=== PATIENT | male | born 1980 | race Caucasian/White ===

== ENCOUNTER → 2020-10-10 10:30 | Outpatient (CLI) | payer BC, SELFPAY ==
--- NOTE | ~2020-10-10 | MR_ITS ---
EXAMINATION: MR brain/brain stem wo/w con DATE: 10/10/2020 11:23 INDICATION: Headache. Vision change. Demyelinating disease. TECHNIQUE: Magnetic resonance imaging (MRI) of the brain and brainstem was performed without and with 20 mL MultiHance intravenous contrast. Sequences included sagittal and axial T1-weighted FLAIR, axia l T1-weighted FSE, axial diffusion-weighted FS EPI, sagittal T2-weighted FLAIR, axial T2*-weighted GR E, axial T2-weighted FLAIR Propeller, and axial T2-weighted Propeller. Postcontrast sequences include d axial, coronal, and sagittal T1-weighted FSE. Apparent diffusion coefficient (ADC) maps were create d. COMPARISON: Brain MRI 09/17/2007 FINDINGS: There is no intracranial hemorrhage, acute infarction, or abnormal intracranial mass lesion . The ventricles are normal in size. The orbits are normal. There is mild mucosal thickening in the p aranasal sinuses. The mastoid air cells are normal. IMPRESSION: 1. Normal brain. Reviewed, dictated and finalized at location A. IMPRESSION: 1. Normal brain.
[2020-10-10 10:55] LABS: Estimated Glomerular Filt Rate > 60
== END ==
PROVIDERS: PCP Emergency Medicine; Visit Provider Emergency Medicine
DX: R51.9 Headache, unspecified (principal)
CPT/HCPCS: 70553; A9577

== ENCOUNTER → 2020-11-21 11:08 | Outpatient (CLI) | payer BC, SELFPAY ==
--- NOTE | ~2020-11-21 | US_ITS ---
US abdomen complete EXAMINATION: US Abdomen Complete INDICATION: Elevated liver enzymes PROCEDURE: Realtime High Resolution abdomen ultrasound. COMPARISON: No prior studies for comparison FINDINGS: There are multiple gallbladder polyps measuring 5 mm or less. No gallstones, gallbladder wa ll thickening or pericholecystic fluid. Common bile duct measures 4 mm. Liver echotexture is increased, consistent with fatty infiltration.. Pancreas within normal limits. Pancreatic tail is obscured by bowel gas. Spleen is unremarkeable. Renal echotexture is within norm al limits bilaterally without hydronephrosis, contour deforming mass or renal stone. Right kidney angie sures 9.7 cm. Left kidney measures 10.6 cm. Visualized aspects of the aorta and IVC are within normal limits. Portal vein is patent. No sonograph ic Grajeda's sign indicated by the technologist. IMPRESSION: 1: Gallbladder polyps. 2: Hepatic steatosis. Reviewed, dictated and finalized at location A.
== END ==
PROVIDERS: PCP Emergency Medicine; Visit Provider Emergency Medicine
DX: K82.4 Cholesterolosis of gallbladder (principal); K76.0 Fatty (change of) liver, not elsewhere classified
CPT/HCPCS: 76700

== ENCOUNTER → 2022-01-28 07:44 | Outpatient (CLI) | payer BC, SELFPAY ==
--- NOTE | ~2022-01-28 | US_ITS ---
US right upper quadrant INDICATION: Follow-up gallbladder polyps PROCEDURE: Realtime right upper abdominal ultrasound. COMPARISON: No prior studies for comparison. FINDINGS: The pancreas is normal without focal mass or pancreatic ductal dilation. Liver echotexture is increased, consistent with fatty infiltration. No focal hepatic masses. There is normal directio nal flow in the portal vein. There are multiple echogenic foci in the gallbladder lumen which are nonmobile and nonshadowing measu ring up to 9 mm. There has been enlargement of gallbladder polyps. Follow-up ultrasound in 6 months r ecommended. No gallstones are identified. No gallbladder wall thickening or pericholecystic fluid. Co mmon bile duct measures 4 mm. No sonographic Grajeda's sign. IMPRESSION: 1: Multiple gallbladder polyps which have enlarged, largest measuring 9 mm. Follow-up ultrasound in 6 months recommended. 2: Hepatic steatosis. Reviewed, dictated and finalized at location A. STIC ASSOCIATE IMPRESSION: 1: Multiple gallbladder polyps which have enlarged, largest measuring 9 mm. Fol low-up ultrasound in 6 months recommended. 2: Hepatic steatosis.
== END ==
PROVIDERS: PCP Emergency Medicine; Visit Provider Emergency Medicine
DX: K82.4 Cholesterolosis of gallbladder (principal); K76.0 Fatty (change of) liver, not elsewhere classified
CPT/HCPCS: 76705

== ENCOUNTER 2022-03-10 14:53 | Outpatient (CLI) | payer BC, SELFPAY ==
[2022-03-10 16:09] LABS: Alanine Aminotransferase 32 U/L (6-50); Albumin Level 4.6 g/dL (3.5-5.1); Alkaline Phosphatase 78 U/L (38-126); Amylase 51 U/L (30-110); Aspartate Amino Transferase 27 U/L (17-59); Bilirubin,Total 0.8 mg/dL (0.2-1.3); Lipase 100 U/L (23-300)
== END 2022-03-10 14:54 | disposition home or self-care (01) ==
LOC: ANHSURGERY 15:23
PROVIDERS: PCP Emergency Medicine; Visit Provider Surgery
DX: K82.4 Cholesterolosis of gallbladder (principal); Z01.818 Encounter for other preprocedural examination
CPT/HCPCS: 36415; 80076; 82150; 83690; 86850; 86900; 86901

== ENCOUNTER 2022-03-19 10:21 | Observation (INO) | payer BC, SELFPAY ==
[2022-03-06 12:32] VITALS: BMI 25.0
--- NOTE | 2022-03-06 13:01 | SUR.PREOP ---
Report to the Outpatient Waiting Room, entrance under the green pavilion located off [facility], at time 0700 on date 03/19/22. Planned Procedure Time: 0900. Time changes happen often and if your time is changed the preop area will call you the afternoon before. - You and your visitor will be asked to self-screen and do not enter if you have any COVID symptoms. - Only one visitor is requested with a max of two and NO children visitors are allowed at this time. - The patient visitor may be requested to leave or wait in car when not with patient due to distancing restrictions. - A mask is optional within the hospital. Patients may have clear liquids (water, carbonated beverages, clear teas, apple juice) until 3 hours prior to surgery with a maximum of 20 ounces. - No food from midnight until time of surgery - Infants may have breast milk until 4 hours before surgery, infant formula 6 hours prior to surgery. - Children will be allowed to drink immediately following surgery. If applicable, please bring a bottle or sippy cup to assist with drinking. Juice, water, soda, and popsicles are readily available. For infants on formula, please bring formula the day of surgery. Pacifiers are allowed. Take the following medications with a SIP of water the morning of surgery: n/a Medications to discontinue per physician n/a Date to take last dose n/a Please no make-up, nail slovak, hairspray, perfume, deodorant, or body powder the day of surgery. No jewelry (including any body piercings) or valuables the day of surgery, leave them at home. Please take a shower or bath the night before, or the morning of, surgery with an antibacterial soap. Wear comfortable, loose fitting clothing. Children are encouraged to wear pajamas. - Jewelry must be removed prior to entering the operating room. Rings and piercings that are not removed may be cut off. - The hospital will not accept responsibility for valuables. - Please leave all valuables, including medications, at home the day of surgery. If you are going home after surgery, a licensed school bus driver/mechanic must drive you home. - NO public transportation without another adult if you receive anesthesia. - We recommend that an adult stay with you for 24 hours following discharge. - We also recommend that you do not drive, make important decision, drink alcoholic beverages, or take any drugs that were not prescribed by your health care provider for at least 24 hours after your discharge time. For Pediatric surgeries, we recommend two adults accompany the child home. Follow any additional instructions given to you from your surgeon. If you or anyone in your household have experienced Covid symptoms in the past week, please notify your surgeon or the nurse liaison at the phone number below for possible testing. Telephone instructions given to clint ribera and asked if any additional questions and then verbalized understanding. Patient advised to call surgeon office or pre surgery nurse liaison [phone] if any additional questions.
--- NOTE | 2022-03-18 12:10 | P.PNAN_ITS ---
Anes - Initial Pre Proc Eval Procedure: Operation Date: 03/19/22 09:00 Proposed Procedures p Laparoscopic Cholecystectomy - Nette Gutiérrez MD Date/Time: 03/18/22 12:10 Surgeon: Nette Gutiérrez MD Pre Op Diagnosis: Gall Bladder Polyps Patient Data Age: 41 Gender: M Height: 1.88 m Weight: 88.45 kg Allergies Allergy/AdvReac Type Severity Reaction Status Date / Time Penicillins Allergy Unknown Unknown Verified 03/06/22 12:35 Home Medications Medication Instructions Recorded Confirmed Type topiramate 50 mg tablet (Topamax) 50 mg PO HS 02/13/22 03/06/22 History Patient hx anesthesia problems: none Family hx anesthesia problems: none Results Review: All pre-operative results and documents have been reviewed as part of the pre- operative evaluation. [facility] Past Medical History Medical History Asthma Family History Family History Other Heart disease Kidney disease Liver disease Social History Social History Smoking status: Never smoker Alcohol intake: current Living arrangements: with family Spiritual care concerns: No Anes - Eval Final PreProcedure Day of Procedure 03/18/22 12:10 Patient weight: normal Heart: regular rate and rhythm Lungs: clear to auscultation and normal air movement Airway: Mallampati scale class II Neurological: alert and oriented Last oral intake: >/= 8 hours ASA classification: II Emergent: no Anesthetic plan: proceed Anesthesia type and monitoring: general ETT and standard monitoring Results Review: All pre-operative results and documents have been reviewed as part of the pre- operative evaluation. Informed Consent: The patient's anesthetic plan and its attendant risks and benefits were discussed with the patient/family/POA. Questions were solicited and answers provided to the satisfaction of the patient/family/POA.
[2022-03-19] VITALS (26 sets, daily range): BP systolic 94–132; BP diastolic 56–86; PULSE 52–85; RESP 12–20; TEMP 36.1–37.2; O2SAT 97–100; BMI 25.7
--- NOTE | 2022-03-19 07:26 | PM.IMHP ---
H&P: HPI History of Present Illness Date/Time: 03/19/22 07:26 Chief Complaint: gallbladder polyp Narrative: 41 y/o male presents to office with complaints of RUQ abdominal pain after eating certain foods. He can't pinpoint exactly which foods trigger this pain.He also experiences bloating. He denies nausea or vomiting. He has also been told that his LFT's were elevated during a work physical. He was then sent for u/s at that time. He had abdominal u/s on 11/21/20 which showed multiple gallbladder polyps measuring 5 mm or less, no gallstones or gallbladder wall thickening. He had another abdominal u/s on 01/28/22 which showed multiple there has been enlargement of gallbladder polyps, no gallstones or gallbladder wall thickening. Family history for gallbladder disease is + in his father. He has been told that he has liver disease so he has been following strict diet which includes whole grains, nuts, & fruit. He avoids spicy & fried foodswith this diet.? He is now seen for further surgical consultation at the request of Dr. Cutler. Review of Systems Review of Systems: All systems reviewed & are unremarkable except as noted in HPI and below PMFSH Past Medical History Medical History Asthma Family History Family History Other Heart disease Kidney disease Liver disease Social History Social History Smoking status: Never smoker Alcohol intake: current Living arrangements: with family Spiritual care concerns: No Meds Home Medications and Allergies Home Medications Medication Instructions Recorded Confirmed Type topiramate 50 mg tablet (Topamax) 50 mg PO HS 02/13/22 03/06/22 History Allergies Allergy/AdvReac Type Severity Reaction Status Date / Time Penicillins Allergy Unknown Unknown Verified 03/06/22 12:35 Exam Const: General: cooperative, comfortable and no acute distress Resp: Auscultation: clear to auscultation bilaterally Cardio: Rate: regular rate Rhythm: regular rhythm GI: Inspection: normal to inspection GI Palp: No abdominal tenderness, Yes Soft to palpation, No Tenderness to palpation present (GI), No Guarding due to palpation present (GI) and No Rigid due to palpation Assessment and Plan Assessment and plan (1) Gallbladder polyp: Code(s): K82.4 - Cholesterolosis of gallbladder Status: Acute Assessment and Plan: will setup for laparoscopic cholecystectomy
--- NOTE | 2022-03-19 07:29 | WPDHPUPDATE1 ---
History and Physical Update Update Date/Time: 03/19/22 07:29 History and Physical has been reviewed, including an updated exam of the patient. There are NO changes in the patient's condition. Risks, benefits, and alternatives have been discussed and questions answered. Patient agrees to proceed with procedure.
[2022-03-19] MEDS: ACETAMINOPHEN 500 MG TABLET 1000 MG PO (08:03)
[2022-03-19] MEDS: LACTATED RINGERS 1,000 ML 30 ML IV CONT ×3 (08:25→11:38)
[2022-03-19] MEDS: KETOROLAC 15 MG/ML VIAL (*BKC) IV PUSH (08:28)
[2022-03-19] MEDS: ceFAZolin 2 GM/D5W 50 ML 2 GM/50 ML BAG IVPB (09:01)
[2022-03-19] MEDS: BUPIVACAINE/EPINEPHRINE 0.5% 30 ML VIAL INFILTRATE (09:26)
--- NOTE | 2022-03-19 09:44 | SUR.OPER ---
Stat H & H sent with LESVIA Townsend and received by Doris
[2022-03-19 09:48] LABS: Hematocrit 31.9 % (42.0-52.0); Hemoglobin 10.7 g/dL (14.0-18.0)
--- NOTE | 2022-03-19 10:24 | W.PM.PROC2 ---
Procedure Note - Detailed Date of Procedure 03/19/22 Pre-op Diagnosis Gallbladder polyps Post-op Diagnosis Same Procedure Performed Laparoscopic cholecystectomy Surgeon Nette Gutiérrez MD Anesthesia General Indications 41-year-old male presented to the office complaining of postprandial right upper quadrant abdominal pain associated with nausea and vomiting. Workup including imaging significant for gallbladder polyps. Findings no gross pathology Description of Procedure The patient was taken to the operating room placed in the supine position. After adequate induction of general anesthesia, the patient was prepped and draped in normal sterile fashion. A time-out was then performed to verify the patient's identity as well as the procedure being performed. I then made a 5 mm incision in the infraumbilical region. Through this, a Veress needle was placed into the peritoneal cavity and CO2 gas was then insufflated. After adequate pneumoperitoneum was achieved, the Veress needle was removed and a 5 mm optiview trocar was placed through this incision under direct visualization. Some blood was noted when I extracted the obturator. I then placed the laparoscope through this trocar site and under direct visualization placed a further 12 mm subxiphoid port as well as 2 additional 5 mm ports in the right upper abdomen. I then examined the area of our initial entry. There was noted to be a significant amount of blood pooling in the mesentery to the right of midline. Using careful grasping, I was able to run the small intestine in this area. There was noted to be a small mesenteric defect where active bleeding was noted. I was able to place pressure on this area. After applying pressure for 5-10 minutes, there did not seem to be any further active bleeding. I did examine the rest of the abdomen around this area and no other obvious pathology was seen. The gallbladder was then identified and was noted to be unremarkable. I was able to place a grasper at the dome of the gallbladder and this was retracted anterior and cephalad up over the liver. A 2nd retractor was then placed at the infundibulum and retracted laterally, this allowed visualization of the triangle of Calot. I then was able to visualize the cystic duct in its entirety from its proximal insertion into the gallbladder, to its distal junction with the common hepatic/common bile duct junction. At this point, I carefully skeletonized the proximal cystic duct with the [place] dissector. I then clipped and transected the proximal cystic duct. Next I visualized the cystic artery. Again the artery was skeletonized, clipped, and transected. I then used the Bovie cautery to take down the peritoneal attachments of the gallbladder off the liver bed. Once the gallbladder specimen was completely detached, an endo-pouch was placed through the 12 mm port site. I then placed the gallbladder specimen into the Endo pouch and removed the endo-pouch from the 12 mm port site. The specimen will now be sent to pathology for further review. I then copiously irrigated the right upper quadrant. Some mild oozing was noted in the liver bed and this was controlled with the bovie cautery. Hemostasis was noted in the liver bed, the clips were noted to be in good position on both the cystic duct stump and the cystic artery stump. No other pathology was noted in the right upper quadrant. I then moved the laparoscope to the subxiphoid port. No iatrogenic injury or other pathology was noted in the lower abdomen. I again examined the area of the mesenteric defect and no further bleeding was appreciated. We did check a stat H/H which was 10.7/31.9. I then closed the 12 mm trocar site under direct visualization using the Jean cone and 0 Vicryl suture. At this point, the abdomen was desufflated and all ports removed. All port sites were then closed with 4.O Monocryl subcuticular sutures. Dermabond was placed on each incis
[2022-03-19] MEDS: fentaNYL CITRATE INJ (*CRX) 100 MCG/2 ML VIAL 25 MCG IV PUSH ×3 (11:00→11:22)
[2022-03-19 11:21] LABS: Hematocrit 39.6 % (42.0-52.0); Hemoglobin 13.3 g/dL (14.0-18.0)
--- NOTE | 2022-03-19 12:39 | SUR.PHASEI ---
updated around 1200
--- NOTE | 2022-03-19 13:15 | SUR.PHASEI ---
Patient meets PACU discharge criteria, unit bed unavailable at this time. Patient placed in extended recovery status.
[2022-03-19] MEDS: HYDROcodone/acetaminophen (*CRX) 5-325 MG TABLET 1 TAB PO ×2 (15:38→19:48)
[2022-03-19] MEDS: LACTATED RINGERS 1,000 ML 100 ML IV CONT (17:24)
[2022-03-19 17:29] LABS: Hematocrit 38.5 % (42.0-52.0); Hemoglobin 12.9 g/dL (14.0-18.0)
--- NOTE | 2022-03-19 17:33 | ADMGEN ---
This patient, Santiago Mclaughlin, was admitted to Medical Room 341-01. Patient/family oriented to hospital policies and general routines including ID bracelet, bed and alarms, visiting hours, pain management, procedures, bathroom and other care routines, personal items, smoking policy, room service/diet, and visiting hours. Information on how to activate the Rapid Response Team has been discussed. Patient/Family are encouraged to report perceived risks to care and to ask questions if they do not understand what they are told or what they should do.
[2022-03-19] MEDS: TOPIRAMATE 25 MG TABLET 50 MG PO (19:48)
[2022-03-20 00:06] VITALS: BP 110/55; PULSE 74; RESP 16; TEMP 36.6; O2SAT 98
[2022-03-20 04:06] VITALS: BP 103/59; PULSE 67; RESP 14; TEMP 36.7; O2SAT 97
[2022-03-20 05:51] LABS: Hemoglobin 11.4 g/dL (14.0-18.0); Mean Corpuscular HGB Conc 33.5 g/dl (32-36); Mean Corpuscular Hemoglobin 30.7 pg (26-34); Mean Corpuscular Volume 91.6 fl (80-100); Mean Platelet Volume 10.5 fl (7.4-10.4); Platelet Count Result 199 k/mm3 (150-375); Red Blood Count 3.71 M/mm3 (4.6-6.20); Red Cell Distribution Width 12.3 % (11.5-14.5); White Blood Count 16.5 K/mm3 (4.5-10.0)
[2022-03-20 06:00] VITALS: BP 103/59; PULSE 67; RESP 14; TEMP 36.7; O2SAT 97
[2022-03-20 06:05] LABS: Anion Gap 6 mmol/L (8-16); Blood Urea Nitrogen 14 mg/dL (9-20); Calcium 8.4 mg/dL (8.4-10.2); Carbon Dioxide 20 mmol/L (22-30); Chloride 109 mmol/L (98-107); Estimated CRCL calculation 82 ml/min; Estimated Glomerular Filt Rate > 60; Glucose 119 mg/dL (65-110); Potassium 3.8 mmol/L (3.4-5.0); Sodium 135 mmol/L (137-145)
[2022-03-20 08:06] VITALS: BP 101/60; PULSE 57; RESP 18; TEMP 36.9; O2SAT 100
--- NOTE | 2022-03-20 10:13 | PM.DS ---
DS: Admitting Diagnosis Discharge Date 03/20/2022 Admitting Diagnosis Gallbladder polyps DS: Discharge Diagnosis Discharge Diagnosis (1) Gallbladder polyp: Code(s): K82.4 - Cholesterolosis of gallbladder Status: Acute Assessment and Plan: status post lap sanna, doing wel, instructions for routine postoperative care, home with p.o. analgesia, follow-up 2 weeksl (2) Intraabdominal hemorrhage: Code(s): R58 - Hemorrhage, not elsewhere classified Status: Acute Assessment and Plan: seems resolved at this point, exam benign and hemodynamically stable over the last day, H&H stable DS: Summary Hospital Course Reason for hospitalization: intra-abdominal hemorrhage Hospital Course: The patient is a 41-year-old male presenting to the hospital for laparoscopic cholecystectomy. Patient had procedure done yesterday, complicated by intra-abdominal hemorrhage. Please see full operative report for details of that procedure. The patient was admitted for observation given intra-abdominal bleeding. Over the course of his hospital stay, he has been hemodynamically stable and his exam continues to be benign. Has had serial exams and labs which have been unremarkable. On postoperative day 1. , the patient is up and ambulating without issue and tolerating a regular diet. He reports some minor incisional soreness well controlled with p.o. analgesia. He will be sent home at this time with instructions for routine postoperative care and p.o. analgesia. He will follow up with me in 2 weeks. Status at Discharge Functional status at discharge: independent ambulation Overall status at discharge: patient is progressing back to baseline Time Spent with Patient Time attestation: Total time spent providing and/or coordinating discharge services: Time spent: Less than 30 minutes Exam Const: General: cooperative, comfortable and no acute distress Resp: Auscultation: clear to auscultation bilaterally Cardio: Rate: regular rate Rhythm: regular rhythm GI: Inspection: normal to inspection, non-distended and incision GI Palp: Yes abdominal tenderness, Yes Soft to palpation, Yes Tenderness to palpation present (GI), No Guarding due to palpation present (GI) and No Rigid due to palpation DS: Data Data Completed and Pending Pending studies at discharge: Pending at discharge 03/19/22 09:10 Surgical [PTH] Routine Labs on day of discharge: Labs from last 24 hours 03/20/22 03/20/22 03/19/22 05:22 05:22 17:03 WBC 16.5 H RBC 3.71 L Hgb 11.4 L 12.9 L Hct 34.0 L 38.5 L MCV 91.6 MCH 30.7 MCHC 33.5 RDW 12.3 Plt Count 199 MPV 10.5 H Sodium 135 L Potassium 3.8 Chloride 109 H Carbon Dioxide 20 L Anion Gap 6 L BUN 14 Creatinine 1.20 Estim Creat Clear Calc 82 Estimated GFR > 60 Glucose 119 H Calcium 8.4 03/19/22 11:02 WBC RBC Hgb 13.3 L Hct 39.6 L MCV MCH MCHC RDW Plt Count MPV Sodium Potassium Chloride Carbon Dioxide Anion Gap BUN Creatinine Estim Creat Clear Calc Estimated GFR Glucose Calcium Discharge Plan Discharge Attending physician on discharge: Nette Gutiérrez Discharging Clinician: Nette Gutiérrez Anticipated Discharge Date/Time: 03/20/22 11:00 Patient Disposition: Home, Self-Care Activity: other - see discharge instructions Diet: other - see discharge instructions Wound Care Instructions: other - see discharge instructions Discharge Instructions: DISCHARGE INSTRUCTION SHEET FOR HERNIA, GALLBLADDER AND APPENDIX SURGERIES DR. GUTIÉRREZ PATIENT TO TAKE HOME 1. May shower in 24 hours, no soaking in bath x 2weeks. 2. Call office for: Wound increasingly painful or bleeding Vomiting Fever of greater than 101 degrees 3. If no bowel movement for three days, take 1 oz. (30 ml) Milk of Magnesia or MiraLax 17g 1 to 2 times daily. 4. No heavy lifting >
--- NOTE | 2022-03-20 10:36 | WPDANESPN ---
Anes - Prog Note Post-Op Date/Time: 03/20/22 10:36 Cardiovascular status: normal Respiratory status: normal Airway patency: baseline Mental status: baseline Post-Op hydration status: normal Vital Signs: Last Vital Signs Temp 36.9 C 03/20/22 08:06 Pulse 57 L 03/20/22 08:06 Resp 18 03/20/22 08:06 BP 101/60 03/20/22 08:06 Pulse Ox 100 03/20/22 08:06 O2 Del Method Room Air 03/20/22 08:30 O2 Flow Rate 10 03/19/22 10:30 Pain Score (VAS): 0 I/O: Intake & Output 03/19/22 03/20/22 03/20/22 23:59 07:59 15:59 Intake Total 480 1000 600 Balance 480 1000 600 Laboratory Tests 03/20/22 05:22 03/20/22 05:22 03/19/22 03/19/22 03/20/22 11:02 17:03 05:22 WBC 16.5 H RBC 3.71 L Hgb 13.3 L 12.9 L 11.4 L Hct 39.6 L 38.5 L 34.0 L MCV 91.6 MCH 30.7 MCHC 33.5 RDW 12.3 Plt Count 199 MPV 10.5 H Sodium Potassium Chloride Carbon Dioxide Anion Gap BUN Creatinine Estim Creat Clear Calc Estimated GFR Glucose Calcium 03/20/22 05:22 WBC RBC Hgb Hct MCV MCH MCHC RDW Plt Count MPV Sodium 135 L Potassium 3.8 Chloride 109 H Carbon Dioxide 20 L Anion Gap 6 L BUN 14 Creatinine 1.20 Estim Creat Clear Calc 82 Estimated GFR > 60 Glucose 119 H Calcium 8.4 Post-procedural complaints: none Patient Feedback: Patient satisfied with anesthetic care.
[2022-03-20] MEDS: HYDROcodone/acetaminophen (*CRX) 5-325 MG TABLET 1 TAB PO ×2 (10:54)
== END 2022-03-20 11:20 | disposition home or self-care (01) ==
LOC: ANH3MED 16:45
PROVIDERS: Admitting Provider Surgery; PCP Emergency Medicine; Visit Provider Surgery
PROC: 0FT44ZZ Resection of Gallbladder, Percutaneous Endoscopic Approach (ICD-10-PCS; CPT 47562; principal; 2022-03-19 09:00)
DX: K80.10 Calculus of gallbladder with chronic cholecystitis without obstruction (principal); R58 Hemorrhage, not elsewhere classified; F10.90 Alcohol use, unspecified, uncomplicated; J45.909 Unspecified asthma, uncomplicated; Z79.899 Other long term (current) drug therapy; Z83.79 Family history of other diseases of the digestive system
CPT/HCPCS: 47562; 36415; 80048; 85014; 85018; 85027; 88304; A9270; G0378; G0379; J0330; J0690; J1100; J1170; J1885; J2250; J2405; J2704; J2710; J3010; J7030; J7120

== ENCOUNTER 2022-03-24 09:55 | Outpatient (CLI) | payer BC, SELFPAY ==
[2022-03-24 11:38] LABS: Hematocrit 37.3 % (42.0-52.0); Hemoglobin 12.6 g/dL (14.0-18.0); Mean Corpuscular HGB Conc 33.8 g/dl (32-36); Mean Corpuscular Volume 91.6 fl (80-100); Mean Platelet Volume 10.4 fl (7.4-10.4); Platelet Count Result 240 k/mm3 (150-375); Red Blood Count 4.07 M/mm3 (4.6-6.20); Red Cell Distribution Width 12.3 % (11.5-14.5); White Blood Count 10.8 K/mm3 (4.5-10.0)
== END 2022-03-24 09:56 | disposition home or self-care (01) ==
LOC: ANHLAB 09:56
PROVIDERS: PCP Emergency Medicine; Visit Provider Surgery
DX: R58 Hemorrhage, not elsewhere classified (principal)
CPT/HCPCS: 36415; 85027

== ENCOUNTER → 2022-03-30 11:45 | Outpatient (CLI) | payer BC, SELFPAY ==
--- NOTE | ~2022-03-30 | CT_ITS ---
EXAMINATION: CT abdomen wo con DATE: 03/30/2022 12:01 INDICATION: Intra-abdominal hemorrhage TECHNIQUE: Computed tomography (CT) of the abdomen and pelvis was performed without intravenous contr ast. Automated exposure control and iterative reconstruction technique were employed. The dose-length product was 515.22 mGy-cm. COMPARISON: Ultrasound dated 01/28/2022 FINDINGS: Lung bases are clear. Visualized inferior heart is normal. No pericardial or pleural effusion. 7 mm c yst in the left hepatic lobe. Interval cholecystectomy with surgical clips the gallbladder fossa and postoperative stranding in the right abdominal wall including along a likely right upper quadrant ar throscopy port. Mild stranding at the caudal bladder fossa without evident intraperitoneal abscess or hematoma. Spleen, pancreas and bilateral adrenal glands are normal. Bilateral nonobstructing nephrol ithiasis with 6 x 3 mm stone in the mid left kidney, 3 mm stone at a lower pole calyx of the left kid kellen and 5 mm stone in the mid right kidney. Visualized portions of the bowels and appendix are normal . Multiple mildly prominent but still normal-sized likely reactive retroperitoneal lymph nodes along with minimal retroperitoneal stranding in the lower abdomen and upper pelvis. No pathologically enlar ged abdominal lymphadenopathy. Bones are unremarkable. IMPRESSION: 1. Postoperative change of interval cholecystectomy with no intraperitoneal abscess or hematoma. Reviewed, dictated and finalized at location A. CTOR OF LABOR AND DELIVERY IMPRESSION: 1. Postoperative change of interval cholecystectomy with no intraperitoneal abs cess or hematoma.
== END ==
PROVIDERS: PCP Emergency Medicine; Visit Provider Surgery
DX: R58 Hemorrhage, not elsewhere classified (principal)
CPT/HCPCS: 74150

== ENCOUNTER 2022-07-16 16:29 | Emergency (ER) | payer BC, SELFPAY ==
--- NOTE | 2022-07-16 16:39 | ED.URI ---
HPI - URI/Sore Throat General Chief Complaint: Upper Respiratory Infection Stated Complaint: fever/sore throat Source: patient and RN notes reviewed History of Present Illness HPI Narrative: 42-year-old male presents to urgent care with complaints of a sore throat, headache, and fevers that started Wednesday night. Patient denies any ear pain, chest pain or shortness of breath, vomiting, or diarrhea. Patient has been taking ibuprofen and Tylenol at home. Related Data Home Medications Medication Instructions Recorded Confirmed amitriptyline 10 mg tablet 10 mg PO HS 07/16/22 07/16/22 Allergies Allergy/AdvReac Type Severity Reaction Status Date / Time No Known Allergies Allergy Verified 07/16/22 16:41 Review of Systems Review of Systems: Pertinent positives and pertinent negatives per HPI. [facility] Past Medical History Medical History Asthma Surgical History Surgical History Hx laparoscopic cholecystectomy 03-19-[address] Gutiérrez. Family History Family History Other Heart disease Kidney disease Liver disease Social History Social History Smoking status: Never smoker Alcohol intake: never Substance use: never Lack of Transportation: No Lack of Food: Never True Current Housing: I Have Housing Concerned About Future Housing: No Difficulty Paying Gas/Electric Bills: No Difficulty Paying for Meds: No Currently Unemployed: No Education: Don't Know Difficulty w/ Childcare or Family Care: No Living arrangements: with family Spiritual care concerns: No Comments At the time of my signature, I reviewed and agree with the nursing past medical, surgical, social, and family history. There is no relevant family history pertinent to the patient complaint. Exam Narrative: GENERAL: This is a well-nourished, well-developed patient, in no apparent distress. HEAD: normocephalic, atraumatic. EYES: Sclera clear/white. Vision is grossly intact. EARS: External ears normal, auditory canals clear and without drainage, TMs normal without perforation. Hearing grossly intact. NOSE: External nose normal with no obvious nasal discharge, nares without redness, no rhinorrhea. THROAT: Mucous membranes moist, posterior pharynx erythemic. NECK: Neck supple, non-tender without lymphadenopathy, masses or thyromegaly. CARDIOVASCULAR: Regular rate RESPIRATORY: no respiratory distress. SKIN: warm, intact with no suspicious lesions or rash, good texture and turgor. NEURO: awake, alert, and oriented to person, place and time. There were no obvious focal neurologic abnormalities. Course Course Level of Care: Express Care Visit Vital Signs Vital signs: Vital Signs Temperature 99.8 F H 07/16/22 16:45 Pulse Rate 101 H 07/16/22 16:45 Respiratory Rate 16 07/16/22 16:45 Blood Pressure 118/83 07/16/22 16:45 Pulse Oximetry 100 07/16/22 16:45 Temperature 99.8 F H 07/16/22 16:45 Pulse Rate 101 H 07/16/22 16:45 Respiratory Rate 16 07/16/22 16:45 Blood Pressure 118/83 07/16/22 16:45 Pulse Oximetry 100 07/16/22 16:45 reviewed MDM - URI/Sore Throat MDM Narrative Medical decision making narrative: After 24 hours on antibiotics throw tooth brush away and start using a new one. Increase your Vitamin C. Do not share drinks. Take Motrin alternating with Tylenol for pain and/or fever alternating every 4 hours. Increase fluids, avoid caffeine. Take a probiotic daily or eat a low sugar yogurt while taking the antibiotic. Follow up with Primary provider if not getting better this week Differential Diagnosis Differential diagnosis: Likely upper respiratory infection, viral infection and pharyngitis Lab Data Attestation: I reviewed the patient's lab
[2022-07-16 16:45] VITALS: BP 118/83; PULSE 101; RESP 16; TEMP 37.7; O2SAT 100
== END 2022-07-16 16:58 | disposition home or self-care (01) ==
PROVIDERS: Emergency Provider Nurse Practitioner Family; PCP Emergency Medicine
DX: J02.0 Streptococcal pharyngitis (principal); J45.909 Unspecified asthma, uncomplicated
CPT/HCPCS: 87804; 87880; 99213; G0463

== ENCOUNTER 2023-02-09 14:08 | Emergency (ER) | payer BC, SELFPAY ==
[2023-02-09 14:15] VITALS: BP 135/92; PULSE 90; RESP 16; TEMP 36.6; O2SAT 100
--- NOTE | 2023-02-09 14:23 | ED.NAVMDI ---
HPI - Nausea/Vomiting/Diarrhea General Chief complaint: Nausea/Vomiting/Diarrhea Stated complaint: VOMITING/DIARRHEA/STREP EXPOSURE Time Seen by Provider: 02/09/23 14:20 Source: patient Mode of arrival: ambulatory Limitations: no limitations History of Present Illness HPI Narrative: Alfonso is a 42-year-old male patient presenting to the clinic today with complaints of vomiting and diarrhea for the past 2-3 days. He reports that he has had strep exposure and is concerned that he may have strep causing his symptoms. He reports he has had a low-grade fever without chills. He reports his symptoms seem to be resolving. Related Data Home Medications Medication Instructions Recorded Confirmed amitriptyline 10 mg tablet 10 mg PO HS 07/16/22 07/16/22 Allergies Allergy/AdvReac Type Severity Reaction Status Date / Time No Known Allergies Allergy Verified 07/16/22 16:41 Review of Systems Review of Systems: Pertinent positives per HPI. Patient denies any chills, rash, headache, visual changes, dizziness, cough, shortness of breath, chest pain, palpitations,constipation, abdominal pain, or any urinary issues. PMFSH Past Medical History Medical History Asthma Surgical History Surgical History Hx laparoscopic cholecystectomy 03-19-[address] Gutiérrez. Family History Family History Other Heart disease Kidney disease Liver disease Social History Social History Smoking status: Never smoker Alcohol intake: never Substance use: never Lack of Transportation: No Lack of Food: Never True Current Housing: I Have Housing Concerned About Future Housing: No Difficulty Paying Gas/Electric Bills: No Difficulty Paying for Meds: No Currently Unemployed: No Education: Don't Know Difficulty w/ Childcare or Family Care: No Living arrangements: with family Spiritual care concerns: No Comments At the time of my signature, I reviewed and agree with the nursing past medical, surgical, social, and family history. There is no relevant family history pertinent to the patient complaint. Exam Narrative: General: Well-developed, well nourished, in no apparent distress Head: Normocephalic, atraumatic Eyes: Pupils equally round and reactive to light bilaterally, EOM intact, sclera and conjunctive clear, no discharge, lids normal Ears: TMs intact and clear, ear canals clear, no drainage, grossly hearing normal. Nose: Nares patent, no discharge, no inflammation, no sinus tenderness. Mouth: Oral pharynx without lesions or masses, good dentition, MMM. Neck: Supple, trachea midline, no enlargement of anterior or posterior cervical nodes, no thyroid masses or goiter palpable. Cardio: Regular rate and rhythm, s1 and s2 normal, no murmur appreciated. Resp: Clear to auscultation bilaterally, no rhonchi, rales, wheezing or rubs Abdomen: Soft, pliable, nondistended, bowel sounds present all 4 quadrants, no tenderness to palpation, no CVAT tenderness, no organomegaly Course Course Emergency Course: Portions of this record may have been created with voice recognition software. Level of Care: Express Care Visit Vital Signs Vital signs: Vital Signs Temperature 36.6 C 02/09/23 14:15 Pulse Rate 90 02/09/23 14:15 Respiratory Rate 16 02/09/23 14:15 Blood Pressure 135/92 H 02/09/23 14:15 Pulse Oximetry 100 02/09/23 14:15 Temperature 36.6 C 02/09/23 14:15 Pulse Rate 90 02/09/23 14:15 Respiratory Rate 16 02/09/23 14:15 Blood Pressure 135/92 H 02/09/23 14:15 Pulse Oximetry 100 02/09/23 14:15 Vital signs reviewed MDM - Nausea/Vomiting/Diarrhea MDM Narrative Medical decision making narrative: At the time of visit patient is resting on
== END 2023-02-09 14:32 | disposition home or self-care (01) ==
PROVIDERS: Emergency Provider Nurse Practitioner Family; PCP Emergency Medicine
DX: K52.9 Noninfective gastroenteritis and colitis, unspecified (principal); J45.909 Unspecified asthma, uncomplicated
CPT/HCPCS: 87081; 87880; 99213; G0463

== ENCOUNTER 2023-11-02 16:56 | Emergency (ER) | payer BC, SELFPAY ==
[2023-11-02 16:57] VITALS: BP 129/85; PULSE 86; RESP 16; TEMP 36.5; O2SAT 100
--- NOTE | 2023-11-02 17:19 | ED.ABDPAIN ---
HPI - Abdominal Pain General Chief Complaint: Abdominal Pain Stated Complaint: started new meds and now has abd pain and gas Time Seen by Provider: 11/02/23 17:05 History of Present Illness HPI narrative: patient has been on weekly for the last month, with increased dosing last week, after which he started having nausea, vomiting, diarrhea, and some abdominal distension and gas. Related Data Home Medications Medication Instructions Recorded Confirmed amitriptyline 10 mg tablet mg 11/02/23 11/02/23 losartan 50 mg tablet mg 11/02/23 semaglutide (weight loss) 1 mg/0.5 mg subcut 11/02/23 mL subcutaneous pen injector ([employer]) Allergies Allergy/AdvReac Type Severity Reaction Status Date / Time No Known Allergies Allergy Verified 11/02/23 17:45 Review of Systems Review of Systems: All systems reviewed & are unremarkable except as noted in HPI and below PMFSH Past Medical History Medical History Asthma Surgical History Surgical History Hx laparoscopic cholecystectomy 03-19-[address] Gutiérrez. Family History Family History Other Heart disease Kidney disease Liver disease Social History Social History Smoking status: Never smoker Alcohol intake: never Substance use: never Lack of Transportation: No Lack of Food: Never True Current Housing: I Have Housing Concerned About Future Housing: No Difficulty Paying Gas/Electric Bills: No Difficulty Paying for Meds: No Currently Unemployed: No Education: Don't Know Difficulty w/ Childcare or Family Care: No Living arrangements: with family Spiritual care concerns: No Exam Narrative: EXAMINATION OF ORGAN SYSTEMS/BODY AREAS: Constitutional: Vital signs per nursing GENERAL:[No acute distress, non-toxic appearing.] HEAD: Normal with no signs of head trauma. EYES: EOMI, conjunctiva normal ENT: Hearing grossly intact LUNGS: Nonlabored breathing. HEART: [Regular rate and rhythm] ABD: [Soft], very minimally tender to palpation epigastric abdomen EXT: Normal range of motion SKIN: [No rashes or lesions.] NEURO: [Alert and oriented x 3. No gross focal sensory or strength deficits.] PSYCH: Normal affect Course Vital Signs Vital signs: Vital Signs Temperature 97.7 F 11/02/23 16:57 Pulse Rate 86 11/02/23 16:57 Respiratory Rate 16 11/02/23 16:57 Blood Pressure 129/85 11/02/23 16:57 Pulse Oximetry 100 11/02/23 16:57 Oxygen Delivery Room Air 11/02/23 16:57 Temperature 97.7 F 11/02/23 16:57 Pulse Rate 86 11/02/23 16:57 Respiratory Rate 16 11/02/23 16:57 Blood Pressure 129/85 11/02/23 16:57 Pulse Oximetry 100 11/02/23 16:57 Oxygen Delivery Room Air 11/02/23 16:57 MDM - Abdominal Pain MDM Narrative Medical decision making narrative: Electronic medical record was reviewed. Patient presented to the ED with complaint of [abdominal pain and vomiting and diarrhea]. Vitals [were within acceptable limits]. Physical exam revealed soft abdomen with some epigastric tenderness. Based on the patient's history and physical exam, my differential includes but is not limited to [gastritis, gastroenteritis, cholecystitis, pancreatitis, appendicitis]. [IV access was established by nursing staff. Patient was given zofran, famotidine, Maalox]. CBC, BMP, lipase, LFTs, bilirubin and alk phos were obtained. Labs were pertinent for essentially normal labs other than slightly elevated ALT which per patient is actually better than it has been before. On reevaluation, the patient states that they are feeling much better. There were no witnessed episodes of vomiting in the emergency department. They are not complaining of any new abdominal pain. Repeat examination did not
[2023-11-02 17:32] LABS: Basophils Absolute Auto 0.1 K/mm3 (0.0-0.1); Basophils Percent Auto 0.5 % (0.2-1.2); Eosinophils Absolute Auto 0.2 K/mm3 (0-0.3); Eosinophils Percent Auto 2.1 % (0-4.4); Hematocrit 42.4 % (42.0-52.0); Hemoglobin 14.7 g/dL (14.0-18.0); Immature Granulocyte Absolute 0.04 K/mm3 (0.00-0.031); Immature Granulocyte Percent A 0.4 % (0-0.5); Lymphocytes Absolute Auto 2.02 K/mm3 (0.9-3.2); Lymphocytes Percent Auto 20.3 % (18.3-44.2); Mean Corpuscular HGB Conc 34.7 g/dl (32-36); Mean Corpuscular Hemoglobin 31.6 pg (26-34); Mean Corpuscular Volume 91.2 fl (80-100); Monocytes Absolute Auto 0.9 K/mm3 (0.1-0.6); Monocytes Percent Auto 9.1 % (2.6-8.5); Neutrophils Absolute Auto 6.7 K/mm3 (1.3-6.7); Neutrophils Percent Auto 67.6 % (45.5-73.1); Platelet Count Result 231 k/mm3 (150-375); Red Blood Count 4.65 M/mm3 (4.6-6.20); Red Cell Distribution Width 12.7 % (11.5-14.5); White Blood Count 9.9 K/mm3 (4.5-10.0)
[2023-11-02] MEDS: LACTATED RINGERS 1,000 ML 999 ML IV CONT (17:35)
[2023-11-02 17:36] LABS: Add Urine Microscopic? YES; Appearance Urine Clear (Clear); Bacteria Urine None Seen /hpf; Bilirubin Urine Negative (Negative); Blood Urine Negative (Negative); Color Urine Yellow (Yellow); Glucose Urine UA Negative (Negative); Ketones Urine Negative (Negative); Leukocyte Esterase Ur Trace LEU/UL (Negative); Nitrate Urine Negative (Negative); Non Pathogenic Casts 0-2; Protein Urine Negative (Negative); RBC Urine 0-2 /hpf (0-2); Squamous Epithelial Cell Urine None Seen /hpf (Few); Urobilinogen Urine 0.2 mg/dL (<2.0); WBC Urine 0-5 /hpf (0-3); pH Urine 8.5 (5.0-9.0)
[2023-11-02] MEDS: FAMOTIDINE 20 MG/2 ML VIAL IV PUSH (17:39)
[2023-11-02] MEDS: ONDANSETRON INJ 4 MG/2 ML VIAL IV PUSH (17:39)
[2023-11-02] MEDS: MAG HYDROX/AL HYDROX/SIMETH 30 ML UDC PO (17:40)
[2023-11-02 17:51] LABS: Alanine Aminotransferase 81 U/L (6-50); Albumin Level 4.7 g/dL (3.5-5.1); Alkaline Phosphatase 107 U/L (38-126); Anion Gap 12 mmol/L (4-12); Aspartate Amino Transferase 48 U/L (17-59); Bilirubin,Total 1.3 mg/dL (0.2-1.3); Blood Urea Nitrogen 12 mg/dL (9-20); Calcium 9.3 mg/dL (8.4-10.2); Carbon Dioxide 25 mmol/L (22-30); Chloride 103 mmol/L (98-107); Estimated CRCL calculation 93 ml/min; Estimated Glomerular Filt Rate > 60; Glucose 93 mg/dL (65-110); Potassium 3.8 mmol/L (3.4-5.0); Sodium 140 mmol/L (137-145)
== END 2023-11-02 18:37 | disposition home or self-care (01) ==
PROVIDERS: Emergency Provider Emergency Medicine
DX: R11.2 Nausea with vomiting, unspecified (principal); R19.7 Diarrhea, unspecified; J45.909 Unspecified asthma, uncomplicated; Z90.49 Acquired absence of other specified parts of digestive tract; Z79.85 Long-term (current) use of injectable non-insulin antidiabetic drugs; Z79.899 Other long term (current) drug therapy
CPT/HCPCS: 36415; 80053; 81001; 85025; 96361; 96374; 96375; 99284; A9270; J2405; J7120

== ENCOUNTER 2024-07-01 14:34 | Emergency (ER) | payer BC, SELFPAY ==
[2024-07-01 14:43] VITALS: BP 112/79; PULSE 86; RESP 16; TEMP 36.2; O2SAT 100
--- NOTE | 2024-07-01 14:50 | ED.DENTAL ---
HPI - Dental/Oral General Chief complaint: Dental/Oral Stated complaint: DENTAL PAIN/SWELLING Time Seen by Provider: 07/01/24 14:50 Source: patient Mode of arrival: ambulatory Limitations: no limitations History of Present Illness HPI Narrative: 44-year-old male presents with complaint of left upper dental pain for 1 day with mild swelling. Reports history similar dental infection and pain to right upper. Does have a dentist but states going out of town tomorrow and will not be able to get in to be seen right away. Afebrile. All systems reviewed and negative except as noted above. Related Data Home Medications ?Medication ?Instructions ?Recorded ?Confirmed ?Last Taken ?Type amitriptyline 10 mg tablet mg 11/02/23 11/02/23 Unknown History losartan 50 mg tablet mg 11/02/23 Unknown History semaglutide (weight loss) 1 mg/0.5 mg subcut 11/02/23 Unknown History mL subcutaneous pen injector ([employer]eg[employer]) Allergies Allergy/AdvReac Type Severity Reaction Status Date / Time No Known Allergies Allergy Verified 07/01/24 14:43 Review of Systems Review of Systems: CONSTITUTIONAL: Denies fever, chills, or sweats. EYES: Denies visual changes, redness, or discharge. ENT: Denies rhinorrhea, congestion, sore throat, or otalgia. Reports left upper dental pain. CARDIOVASCULAR: Denies chest pain, palpitations, or edema. RESPIRATORY: Denies cough or dyspnea. GASTROINTESTINAL: Denies abdominal pain, nausea, vomiting, or diarrhea. GENITOURINARY: Denies dysuria or hematuria. SKIN: Denies rash or itching. MUSCULOSKELETAL: Denies back pain, joint pain, or myalgia. NEUROLOGIC: Denies headache, numbness, or weakness. PSYCHIATRIC: Denies anxiety or depression. All other systems reviewed are negative, except as documented in HPI. [facility] Past Medical History Medical History Asthma Surgical History Surgical History Hx laparoscopic cholecystectomy 03-19-[address] Gutiérrez. Family History Family History Other Heart disease Kidney disease Liver disease Social History Social History Smoking status: Never smoker Alcohol intake: never Substance use: never Lack of Transportation: No Lack of Food: Never True Current Housing: I Have Housing Concerned About Future Housing: No Difficulty Paying Gas/Electric Bills: No Difficulty Paying for Meds: No Currently Unemployed: No Education: Don't Know Difficulty w/ Childcare or Family Care: No Living arrangements: with family Spiritual care concerns: No Comments At time of signature, agree with nursing past medical, surgical, social and family history. There is no relevant family history pertinent to the presenting complaint. Exam Narrative: GENERAL: This is a well-nourished, well-developed patient, in no apparent distress. HEAD: normocephalic, atraumatic. EYES: PERRL. Sclera clear/white. Vision is grossly intact. EARS: External ears normal NOSE: External nose normal MOUTH: tenderness to tooth #14 on palpation. mild swelling and erythema surrounding it. no fluctuance concerning for abscess NECK: Neck supple, non-tender without lymphadenopathy, masses or thyromegaly. CARDIOVASCULAR: Regular rate and rhythm without murmurs, gallops, or rubs. RESPIRATORY: Clear to auscultation. Breath sounds equal bilaterally. No wheezes, rales, or rhonchi. SKIN: warm, Dry, intact with no suspicious lesions or rash, good texture and turgor. NEURO: awake, alert, and oriented to person, place and time. There were no obvious focal neurologic abnormalities. EXTREMITIES: No joint tenderness, effusion, or edema noted. Course Course Level of Care: Express Care Visit Vital Signs Vital signs: Vital Signs Temperature 36.2 C L 07/01/24 14:43 Pulse Rate 86 07/01/24 14:43 Respiratory Rate 16 07/01/24 14:43 Blood Pressure 112/79 07/01/24 14:43 Pulse Oximetry 100 07/01/24 14:43 Temperature 36.2 C L 07/01/24 14:43 Pulse Rate 86 07/01/24 14:43 Respiratory Rate 16 07/01/24 14:43 Blood Pressure 112/79 07/01/24 14:43 Pulse Oximetry 100 07/01/24 14:43 Reviewed MDM - Dental/Oral MDM Narrative Medical decision making narrative: Will treat patient with amoxicillin for to possible dental infection. Recommend follow-up with dentist at next available appointment. Please be advised this is a medical document. It is intended for [id number] communication. It is written in medical language and may contain unfamiliar abbreviations or verbiage. Medical documents are intended to carry relevant information, facts as evident, and the clinical opinion of the practitioner at the time of the encounter. This report may have been done utilizing a voice recognition system. Attempts have been made to correct errors. However, there may be uncorrected grammatical, spelling, and recognition errors present. The file time of this note does not necessarily represent the time of service. Discharge Plan Discharge Clinical Impression: Dental infection Patient Disposition: Home Condition: Stable Instructions: Antibiotic Form, Toothache (ED) Additional Instructions: Take antibiotic as prescribed until gone. Take ibuprofen or Tylenol every 6-8 hours as needed for pain. Follow-up with your dentist at next available appointment. Patient Language: Burkinan Prescriptions: New amoxicillin 875 mg tablet 875 mg PO Q12H 10 Days Qty: 20 0RF No Action losartan 50 mg tablet amitriptyline 10 mg tablet Wegovy 1 mg/0.5 mL pen injector SUBCUT dicyclomine 20 mg tablet 20 mg PO TID PRN (Reason: abdominal pain) Qty: 30 0RF famotidine 20 mg tablet 20 mg PO DAILY Qty: 30 0RF ondansetron 4 mg tablet,disintegrating 4 mg PO Q8H PRN (Reason: nausea and vomiting) Qty: 10 0RF alum-mag hydroxide-simeth [Maalox Advanced] 200-200-20 mg/5 mL suspension 10 ml PO QID PRN (Reason: indigestion) Qty: 100 0RF Rx Instructions: administer between meals and at bedtime Follow-up/Referrals: Tona,Pham [Other] Time of Disposition: 14:53
== END 2024-07-01 14:58 | disposition home or self-care (01) ==
PROVIDERS: Emergency Provider Nurse Practitioner Family
DX: K04.7 Periapical abscess without sinus (principal); J45.909 Unspecified asthma, uncomplicated
CPT/HCPCS: 99213; G0463